=== PATIENT | male | born 1965 | race Caucasian/White ===

== ENCOUNTER 2020-09-03 18:58 | Emergency (ER) | payer SELFPAY ==
--- NOTE | 2020-09-03 19:13 | NUR ---
PATIENT LEFT WITHOUT BEING SEEN BY DR. DE LA TORRE. NO FURTHER CARE PROVIDED FOR PATIENT.
== END 2020-09-03 19:13 | disposition left against medical advice (07) ==
LOC: MED 18:58
DX: Z53.21 Procedure and treatment not carried out due to patient leaving prior to being seen by health care provider (principal)

== ENCOUNTER 2020-09-09 07:53 | Emergency (ER) | payer OTHER ==
[~2020-09-09] VITALS: Ht 165.1 cm; Wt 81.6 kg
--- NOTE | 2020-09-09 07:58 | NUR ---
Patient transferred to bed 4 via wheelchair by tech. RN evaluating patient at bedside.
[2020-09-09 08:04] VITALS: BP 152/88
--- NOTE | 2020-09-09 08:13 | NUR ---
55 YEAR OLD MALE COMPLAINS OF LEFT LEG SWELLING SINCE VEIN LIGATION SURGERY X WEDNESDAY. PT STATES THAT HIS NORCO MEDICATION NO LONGER HELPS WITH PAIN, AND WANTED PAIN MANAGEMENT. SITE IS VISIBLY SWOLLEN, SENSATION INTACT IN LEFT LEG, PEDAL PULSE +3 , CAP REFILL <3 SEC. PT NEEDS ASSISTANCE WITH AMBULATION. PT AOX4, BREATHING EVEN AND UNLABORED, SKIN WARM AND DRY. BED IN LOWEST POSITION, LOCKED, BED RAIL UPX1. PMH - DENIES ALLERGIES - PCN
--- NOTE | 2020-09-09 08:55 | NUR ---
US tech at bedside for exam.
[2020-09-09] MEDS ORDERED: ONDANSETRON 4 MG ODT PO ONE (09:05)
[2020-09-09] MEDS ORDERED: HYDROcodone/APAP 5/325 MG 1 TAB TAB PO ONE (09:05)
--- NOTE | 2020-09-09 10:35 | NUR ---
Patient discharged with v/s stable. Written and verbal after care instructions about hematoma given and explained. Patient alert, oriented and verbalized understanding of instructions. Ambulatory with steady gait. All questions addressed prior to discharge. ID band removed. Patient advised to follow up with PMD. Rx of NORCO given. Patient educated on indication of medication including possible reaction and side effects. Opportunity to ask questions provided and answered.
[2020-09-09 10:37] VITALS: BP 131/78
== END 2020-09-09 10:35 | disposition home or self-care (01) ==
LOC: MED 07:53
DX: I72.9 Aneurysm of unspecified site (principal); Z88.0 Allergy status to penicillin
CPT/HCPCS: 93971; 99284; Q0162